=== PATIENT | male | born 2000 | race Caucasian/White ===

== ENCOUNTER 2023-01-31 10:34 | Emergency (ER) | payer MEDICAID ==
[~2023-01-31] VITALS: Ht 172.7 cm; Wt 68.2 kg
[2023-01-31 10:59] VITALS: BP 133/81; PULSE 89; RESP 20; TEMP 98.1; O2SAT 100
[2023-01-31] MEDS ORDERED: IBUP-1986 PO (11:43)
[2023-01-31] MEDS ORDERED: CLIN-97 PO (11:43)
== END 2023-01-31 12:21 | disposition home or self-care (01) ==
LOC: ER 10:34
DX: K04.7 Periapical abscess without sinus (principal); F17.200 Nicotine dependence, unspecified, uncomplicated; Z88.0 Allergy status to penicillin; Z88.1 Allergy status to other antibiotic agents; Z79.1 Long term (current) use of non-steroidal anti-inflammatories (NSAID); Z79.2 Long term (current) use of antibiotics
CPT/HCPCS: 99283

== ENCOUNTER 2023-05-10 12:25 | Emergency (ER) | payer MEDICAID ==
[~2023-05-10] VITALS: Ht 172.7 cm; Wt 65.2 kg
[~2023-05-10 12:25] MED LIST: CLIN-97 PO; IBUP-1986 PO
[2023-05-10 12:48] VITALS: BP 116/80; PULSE 63; RESP 16; TEMP 98; O2SAT 98
== END 2023-05-10 13:01 | disposition home or self-care (01) ==
LOC: ER 12:26
DX: S01.01XD Laceration without foreign body of scalp, subsequent encounter (principal); Z88.0 Allergy status to penicillin; Z88.1 Allergy status to other antibiotic agents; Z79.1 Long term (current) use of non-steroidal anti-inflammatories (NSAID); Z79.2 Long term (current) use of antibiotics; V89.2XXD Person injured in unspecified motor-vehicle accident, traffic, subsequent encounter
CPT/HCPCS: 99281

== ENCOUNTER 2023-05-16 22:27 | Emergency (ER) | payer MEDICAID ==
[~2023-05-16] VITALS: Ht 172.7 cm; Wt 66.0 kg
[2023-05-16 22:40] VITALS: BP 139/81; PULSE 79; RESP 18; TEMP 97.5; O2SAT 97
== END 2023-05-17 04:29 | disposition home or self-care (01) ==
LOC: ER 22:28
DX: S63.92XA Sprain of unspecified part of left wrist and hand, initial encounter (principal); Z88.0 Allergy status to penicillin; Z79.2 Long term (current) use of antibiotics; Z79.899 Other long term (current) drug therapy; X58.XXXA Exposure to other specified factors, initial encounter; Y93.89 Activity, other specified; Y92.89 Other specified places as the place of occurrence of the external cause; Y99.8 Other external cause status
CPT/HCPCS: 29125; 73130; 99283

== ENCOUNTER 2024-02-13 23:08 | Emergency (ER) | payer MEDICAID, OTHER ==
[~2024-02-13] VITALS: Ht 172.7 cm; Wt 59.8 kg
[2024-02-13 23:10] VITALS: TEMP 98.4
[2024-02-13] MEDS: diphenhydrAMINE 50 mg/ml inj IV ONE (23:53)
[2024-02-13] MEDS: methylPREDNISolone sod succ/PF 40mg inj. IV SCH (23:53)
[2024-02-13] MEDS: famotidine/PF 10 mg/ml inj IV ONE (23:53)
[2024-02-14] MEDS: predniSONE 20 mg tablet PO ONE (00:27)
[2024-02-14] MEDS: diphenhydrAMINE 25mg capsule PO ONE (00:27)
[2024-02-14] MEDS: famotidine 20mg tablet PO ONE (00:27)
[2024-02-14 01:08] VITALS: BP 96/55; PULSE 66; RESP 18; O2SAT 97
[2024-02-23] MEDS ORDERED: AMOX500C2 PO (19:27)
[2024-02-23] MEDS ORDERED: CLIN300C3 PO (19:31)
== END 2024-02-14 01:11 | disposition home or self-care (01) ==
LOC: ER 23:09
DX: L50.9 Urticaria, unspecified (principal); Z88.0 Allergy status to penicillin; Z88.1 Allergy status to other antibiotic agents; Z79.2 Long term (current) use of antibiotics; Z79.899 Other long term (current) drug therapy
CPT/HCPCS: 99284; J7512; Q0163

== ENCOUNTER 2024-06-09 17:22 | Emergency (ER) | payer MEDICAID ==
[~2024-06-09] VITALS: Ht 172.7 cm; Wt 67.8 kg
[2024-06-09] MEDS ORDERED: CLIN-214 PO (18:11)
[2024-06-09] MEDS ORDERED: IBUP-1984 PO (18:11)
[2024-06-09] MEDS: acetaminophen 325mg tablet PO ONE (18:17)
[2024-06-09] MEDS: clindamycin 150mg capsule PO ONE (18:18)
[2024-06-09] MEDS: ibuprofen tablet 400 MG TABLET PO ONE (18:18)
[2024-06-09 18:22] VITALS: BP 118/68; PULSE 78; RESP 16; TEMP 98.9; O2SAT 98
== END 2024-06-09 18:24 | disposition home or self-care (01) ==
LOC: ER 17:22
DX: K02.9 Dental caries, unspecified (principal); Z88.0 Allergy status to penicillin; Z88.1 Allergy status to other antibiotic agents; Z79.1 Long term (current) use of non-steroidal anti-inflammatories (NSAID)
CPT/HCPCS: 99284